=== PATIENT | female | born 1965 | race Caucasian/White ===

== ENCOUNTER → 2016-11-04 | Outpatient (CLI) | payer BC ==
--- NOTE | 2016-11-04 15:11 | MAMMOGRAPHY REPORT ---
UNILATERAL LEFT DIGITAL DIAGNOSTIC MAMMOGRAM WITH CAD: 11/04/2016 CLINICAL HISTORY: 51 year-old woman with a family history of breast cancer = mother and aunt, called back from screening mammography for possible grouped microcalcifications in the left breast. TECHNIQUE: Spot magnification left CC and ML views were obtained. COMPARISON: Comparison is made to exams dated: 10/22/2016 mammogram, 01/12/2015 mammogram - [facility], 11/28/2014 mammogram, 12/15/2013 mammogram, 12/11/2011 mammogram, and 12/10/2010 raheem mogram. BREAST COMPOSITION: The tissue of the left breast is heterogeneously dense, which may obscure small masses. FINDINGS: There are AP approximately 5 loosely grouped round and punctate microcalcifications loosel y grouped within the 11:00 through 12:00 anterior left breast. When comparing to prior available ma mmograms, a few of these microcalcifications were likely present on the 01/12/2015 exam. No obvious associated architectural distortion or suspicious mass. The microcalcifications are indeterminate, particularly given that some are new compared to prior mammograms. Options of stereotactic biopsy versus very close follow-up were discussed. We will opt to follow the microcalcifications in a shor t interval at this time. Also given the dense breasts and family history of breast cancer, could consider additional screenin g with complete breast ultrasound. This could also be performed at the time of short interval follo w-up. IMPRESSION: ACR-BI-RADS CATEGORY 3: PROBABLY BENIGN 1. There are approximately 5 very loosely grouped microcalcifications in the 11:00 to 12:00 left an terior breast, some of which are new comparing to the 2015 mammogram performed nearly 2 years ago. Although these calcifications could represent benign fibrocystic changes, a short interval follow-up mammogram with repeat spot magnification views is recommended to ensure stability in 6 months. 2. At the time of follow-up, consider bilateral whole breast ultrasound for additional screening, g iven the personal history of dense breasts and strong family history of breast cancer. These results and recommendations were discussed with the patient at the time of the exam. Approximately 10% of breast cancers are not detected with mammography. A negative mammographic repor t should not delay biopsy if a clinically suggestive mass is present. Emilia Luevano M.D. ay/:11/04/2016 12:25:03 Electronics Technician Apprentice: Francisca Denson [facility] letter sent: Follow Up Recommended 3 BI-RADS Code: ACR-BI-RADS Category 3: Probably Benign
== END | disposition home or self-care (01) ==
LOC: C.MAMM 08:42
PROVIDERS: ATTEND Family Medicine
DX: R92.0 Mammographic microcalcification found on diagnostic imaging of breast (principal); Z80.3 Family history of malignant neoplasm of breast

== ENCOUNTER → 2017-05-04 | Outpatient (CLI) | payer BC ==
--- NOTE | 2017-05-04 15:19 | MAMMOGRAPHY REPORT ---
UNILATERAL LEFT DIGITAL DIAGNOSTIC MAMMOGRAM TOMOSYNTHESIS WITH CAD AND BILATERAL ULTRASOUND: 7 CLINICAL HISTORY: 51 year-old woman presents to follow-up loosely grouped punctate and round microcal cifications in the left breast. Also complete bilateral breast ultrasound for additional screening, given the personal history of dense breasts and family history of breast cancer. TECHNIQUE: Left CC and MLO 2-D digital and tomosynthesis images, spot magnification left CC and ML vi ews were obtained. Current study was also evaluated with a Computer Aided Detection (CAD) system. COMPARISON: Comparison is made to exams dated: 11/04/2016 mammogram, 10/22/2016 mammogram, 01/12/2015 m [facility], 11/28/2014 mammogram, 12/15/2013 mammogram, and 12/11/2011 mammo gram. BREAST COMPOSITION: The tissue of the left breast is heterogeneously dense, which may obscure small masses. FINDINGS: There is a new circumscribed 16 x 17 x 11 mm mass in the lower inner quadrant of the left b reast. Loosely grouped round and punctate microcalcifications are again seen in the medial and centr al left breast. On the spot magnification views, there are 1, possibly 2 additional round and puncta te microcalcifications when comparing to the prior spot magnification views obtained 11/04/2016. One of the calcifications layers on the current spot magnification ML view suggesting they represent zbigniew ign milk of calcium/fibrocystic changes. Given that there are increasingly conspicuous comparing to more remote mammograms, another short interval follow-up diagnostic left mammogram with repeat spot m agnification views is recommended in 6 months. Annual right mammography is also due at that time. N o focal area of architectural distortion or other microcalcifications are currently seen. Real-time high-resolution sonographic evaluation was performed throughout each breast including the r etroareolar aspect of the breasts, and both axillae. First targeted ultrasound was performed in the lower inner quadrant of the left breast to evaluate fo r the newly visualized mammographic mass. There is a lobulated anechoic benign simple cyst with post erior acoustic enhancement, measuring 17.3 x 11.8 x 13.2 mm. This correlates well in size, shape and location as the mammographic mass and is benign. Throughout the remainder of the left breast, there are other scattered subcentimeter anechoic benign simple cysts, within the 4:00 axis, 2 cm from the nipple, 9:00 periareolar left breast and 11:00 left breast, 1 cm from the nipple. No suspicious left axillary lymphadenopathy. Scattered subcentimeter anechoic benign simple cysts are seen throughout the right breast within the 1:00 periareolar, 6:30 right breast, 2 cm from the nipple, 8:00 right breast, 3 cm from the nipple, a nd 10:00 right breast, 3 cm from the nipple. No suspicious solid mass is seen throughout the right b reast including the retroareolar breast. No suspicious right axillary lymphadenopathy. IMPRESSION: ACR-BI-RADS CATEGORY 3: PROBABLY BENIGN, ULTRASOUND ACR-BI-RADS CATEGORY 3: PROBABLY ZBIGNIEW IGN 1. Generally stable benign-appearing round and punctate microcalcifications that are loosely grouped in the 11:00 and 12:00 middle to anterior left breast. Another short interval follow-up diagnostic mammogram including repeat left breast spot magnification views is recommended in 6 months. 2. Bilateral whole breast ultrasound for additional screening demonstrates scattered subcentimeter c ysts bilaterally, compatible with benign fibrocystic changes. The dominant cyst is identified in the left 7:00 breast, measuring 17 mm, and this is also newly visualized mammographically. No suspiciou s solid mass or sonographic evidence of malignancy. 3. Bilateral diagnostic mammograms including repeat spot magnification views of the left breast are due in 6 months. These results and recommendations were discussed with the patient at the time of the exam. Approximately 10% of breast cancers are not detected with mammography. A negative mammographic report should not delay biopsy if a clinically suggestive mass is present. Emilia Luevano M.D. ay/:05/04/2017 14:46:40 Building Serviceman: Francisca BUENROSTRO(Jovi)(Tamara), [facility] letter sent: Follow Up Recommended 3 BI-RADS Code: ACR-BI-RADS Category 3: Probably Benign Ultrasound BI-RADS: ACR-BI-RADS Category 3: Pr obably Benign
== END | disposition home or self-care (01) ==
LOC: C.MAMM 13:35
PROVIDERS: ATTEND Family Medicine
DX: Z09 Encounter for follow-up examination after completed treatment for conditions other than malignant neoplasm (principal); R92.0 Mammographic microcalcification found on diagnostic imaging of breast; Z80.3 Family history of malignant neoplasm of breast; N60.02 Solitary cyst of left breast; N60.01 Solitary cyst of right breast

== ENCOUNTER → 2017-11-04 | Outpatient (CLI) | payer OTHER ==
--- NOTE | 2017-11-05 12:47 | MAMMOGRAPHY REPORT ---
BILATERAL DIGITAL DIAGNOSTIC MAMMOGRAM TOMOSYNTHESIS WITH CAD AND TARGETED LEFT ULTRASOUND: 11/04/2017 CLINICAL HISTORY: 52-year-old woman presents for a second close follow-up of punctate microcalcificat ions in the left breast. Also due for annual mammography. TECHNIQUE: Bilateral breast tomosynthesis in addition to standard 2D mammography was performed. Spot magnification left CC and ML views were also obtained. Current study was also evaluated with a Comp uter Aided Detection (CAD) system. COMPARISON: Comparison is made to exams dated: 05/04/2017 ultrasound, 05/04/2017 mammogram, 11/04/2016 raheem mogram, 10/22/2016 mammogram, 01/12/2015 mammogram - [facility], and 11/28/2014 mammo gram. BREAST COMPOSITION: The tissue of both breasts is heterogeneously dense, which may obscure small mas ses. FINDINGS: The glandular pattern of the right breast is similar to prior mammograms. No obvious new masses, calcifications, areas of architectural distortion or asymmetries are identified. The glandul ar pattern of the left breast is similar to prior mammograms. Again seen is a dominant circumscribed 15 mm mass in the lower inner quadrant of the left breast, pre viously documented to represent a simple cyst on ultrasound. Spot magnification views of the left br east redemonstrate regional punctate microcalcifications, that appear stable in number and distributi on when comparing back to spot magnification views obtained 11/04/2016. With one year of mammographi c stability they are probably benign but given that they were on not identified on more remote prior mammograms, another close follow-up left diagnostic mammogram including spot magnification views is r ecommended in 12 months. There is an asymmetry in the superior posterior left breast seen on MLO chanell osynthesis slice 20/64 that could represent normal overlapping tissue although further evaluation wit h ultrasound was performed. Targeted ultrasound was performed in the superior left breast. In the 1:00 axis, 5 cm from the nippl e there is an isoechoic mass versus normal fat lobule with evidence of posterior acoustic enhancement suggesting this may represent a true mass. It measures 9.6 x 6.1 x 8.7 mm. The patient also report ed pain when ultrasound was targeting over this mass. Definitive characterization with ultrasound gu ided core biopsy is recommended. Other scattered anechoic cysts were identified throughout the remai nder of the superior left breast on ultrasound. No other suspicious solid masses. IMPRESSION: ACR BI-RADS CATEGORY 4: SUSPICIOUS, TARGETED ULTRASOUND ACR BI-RADS CATEGORY 4: SUSPICIO US 1. Incidentally identified on ultrasound is a possible isoechoic mass versus fat lobule measuring 9. 6 mm in the 1:00 left breast, 5 cm from the nipple. Given the potential solid nature as posterior ac oustic enhancement is appreciated on ultrasound, definitive characterization with an ultrasound-guide d core needle biopsy is recommended. 2. Stable mammographic appearance of the right breast, without mammographic evidence of malignancy. 3. Otherwise stable mammographic appearance of the left breast including regional punctate microcalc ifications in the medial breast. These results and recommendations were discussed with the patient at the time of the exam. Pending b enign pathology results from the core biopsy in the 1:00 left breast would recommend bilateral diagno stic mammograms and left spot magnification views in 12 months. Approximately 10% of breast cancers are not detected with mammography. A negative mammographic report should not delay biopsy if a clinically suggestive mass is present. Emilia Luevano M.D. ay/:11/04/2017 14:53:24 Market Master: Angie BUENROSTRO(Jovi)(Tamara), [facility] letter sent: Abnormal 4/5 BI-RADS Code: ACR BI-RADS Category 4: Suspicious Ultrasound BI-RADS: ACR BI-RADS Category 4: Suspici ous
== END | disposition home or self-care (01) ==
LOC: C.MAMM 12:41
PROVIDERS: ATTEND Family Medicine
DX: R92.8 Other abnormal and inconclusive findings on diagnostic imaging of breast (principal); Z80.3 Family history of malignant neoplasm of breast

== ENCOUNTER → 2017-11-05 | Outpatient (CLI) | payer OTHER ==
--- NOTE | 2017-11-05 09:56 | Discharge Instructions ---
Discharge Instructions Procedure Procedure Date: Nov 05, 2017. Reason for visit: Left Mass. Discharge Discharge Date: Nov 05, 2017. Discharge Diagnosis: POST LEFT BREAST ULTRASOUND GUIDED CORE BIOPSY Instructions Activity Recommendations: Additional Limitations (see below) Return to School/Work: no limitations Recommended Home Diet: No Limitations Provider Instructions: ACTIVITY RECOMMENDATIONS: * No lifting, pushing, pulling or exercising the affected side for three days. RETURN TO SCHOOL/WORK: * You may return to work/school after the procedure, but do not perform any strenuous activities for 24 to 48 hours. MEDICATIONS: * Tylenol (two 325 mg) every four to six hours if needed for mild pain (if not allergic to Tylenol). DIET: * Resume previous diet. SPECIAL CARE INSTRUCTIONS: * Keep biopsy site dry for 24 hours. May shower after 24 hours, but do not soak (bathe) incision. * May remove Tegaderm (plastic patch) tomorrow AFTER showering. * Leave the steri-strips on for one week. Allow the steri-strips to fall off by themselves. If not off after one week, you may remove them. You may place a Bandaid crosswise over the strips, if desired. * Apply ice 10 minutes on and 10 minutes off as needed. * Wear a bra at bedtime to sleep more comfortably for 2-3 days. * Your referring physician should have the results after approximately 5 to 7 business days. * Call for unusual bleeding, fever, drainage, etc or if you have any questions call [phone] during normal business hours or after hours call Dr Luevano, . FOLLOW UP VISIT: Follow-up with Referring Physician as scheduled. Nichol Dietz Recommendations: Call your doctor if: * Temperature above 101 degrees * Pain not relieved by pain medicine ordered * There is increased drainage or redness from any incision * You have any unanswered questions or concerns. Your Doctors Instructions noted above were prepared by provider Emilia Luevano. Patient Signature Section: Patient Instructions Signature Page Karo Palma Patient (or Guardian) Signature/Date: I have read and understand the instructions given to me by my caregivers. Caregiver/RN/Doctor Signature/Date: The above-named patient and/or guardian has received patient instructions on this date. + Original Patient Signature Page (only) stays with chart. Please make copy for patient.
--- NOTE | 2017-11-05 12:47 | MAMMOGRAPHY REPORT ---
ULTRASOUND GUIDED BIOPSY LEFT BREAST: 11/05/2017 CLINICAL HISTORY: 52-year-old woman presents for ultrasound-guided core biopsy of a conspicuous fat l obule versus isoechoic 9.6 mm mass in the 1:00 left breast incidentally identified on ultrasound. COMPARISON: Comparison is made to exams dated: 11/04/2017 ultrasound, 11/04/2017 mammogram, 05/04/2017 ult rasound, 05/04/2017 mammogram, 11/04/2016 mammogram, and 10/22/2016 mammogram - [facility]. PATIENT CONSENT: The procedure, risks and benefits were discussed with the patient and informed conse nt was obtained both verbally and in writing. Specific risks to this procedure include: bleeding, in fection, puncture of adjacent structure, nontarget biopsy, sampling error, pain, metal allergy and me dication reaction. PROCEDURE DESCRIPTION: A time out was performed and the left breast was agreed as the site of biopsy. The skin was prepped and draped in the usual sterile fashion. The isoechoic 9.6 mm mass in the 1:00 left breast was chosen as the target for biopsy. Subcutaneous and intraparenchymal 1% buffered lidoca ine, with and without epinephrine, was administered as local anesthesia. A skin incision was made. T hrough the incision, 4 samples were taken with a 14 gauge Achieve biopsy device. A ribbon shaped meta llic marker was placed at the biopsy site. Hemostasis was achieved after manual compression. The sisi ent tolerated the procedure well and there was no immediate complication. The samples were [facility] in an appropriately labeled container. Postprocedure right CC and ML tomosynthesis images were obtained. A new ribbon-shaped biopsy marker clip is identified in the 1:00 posterior left breast, denoting the site of recent ultrasound guided c ore biopsy. Lucency surrounds the biopsy marker clip suggesting fat density. No significant postbio psy hematoma. IMPRESSION: ULTRASOUND GUIDED BIOPSY Status post ultrasound-guided core biopsy of a conspicuous fat lobule versus isoechoic mass in the 1: 00 left breast, with ribbon-shaped biopsy marker clip placed at the site. Pending benign pathology results, follow-up diagnostic tomosynthesis mammograms and repeat spot magni fication views of the left breast are recommended in 12 months. The patient will receive notification of the biopsy results from her referring physician. Emilia hawkins/:11/05/2017 12:11:38 Rehabilitation Tech: Janae MANDEL)Rubin), [facility]
--- NOTE | 2017-11-05 12:47 | MAMMOGRAPHY REPORT ---
UNILATERAL LEFT DIGITAL DIAGNOSTIC MAMMOGRAM TOMOSYNTHESIS: 11/05/2017 CLINICAL HISTORY: Status post ultrasound guided core biopsy of an isoechoic mass versus prominent fat lobule in the 1:00 left breast incidentally identified on ultrasound. Please refer to the report from left breast ultrasound guided core biopsy performed at the same time for full detail. IMPRESSION: POST PROCEDURE IMAGING FOR MARKER PLACEMENT Please refer to the report from left breast ultrasound guided core biopsy performed at the same time for full detail. Approximately 10% of breast cancers are not detected with mammography. A negative mammographic report should not delay biopsy if a clinically suggestive mass is present. Emilia Luevano M.D. ay/:11/05/2017 09:58:01 Freelance Operator: Janae MANDEL)(M), [facility] BI-RADS Code: Post Procedure Imaging For Marker Placement
== END | disposition home or self-care (01) ==
LOC: C.MAMM 08:49
PROVIDERS: ATTEND Family Medicine
DX: N63.20 Unspecified lump in the left breast, unspecified quadrant (principal)